=== PATIENT | male | born 1950 | race Caucasian/White ===

== ENCOUNTER 2017-05-06 16:28 | Emergency (ER) | payer MEDICARE ==
[~2017-05-06] VITALS: Ht 180.3 cm; Wt 97.7 kg
[~2017-05-06 16:28] MED LIST: AMOX-291 PO; CARV3.1212 PO; CLAR500T3 PO; LISI2.5T PO; METR500T8 PO; PANT40TA3 PO; SIMV20TA PO
[2017-05-06] MEDS ORDERED: SODIUM CHLORIDE FLUSH 10ML SYR IVF ONE (17:30)
[2017-05-06] MEDS ORDERED: ONDANSETRON 2MG/ML, 2ML IVPush ONE (17:30)
[2017-05-06] MEDS ORDERED: MORPHINE SULFATE 4 MG/ML, 1ML IVPush PRN (17:30)
[2017-05-06 17:31] LABS: HEMATOCRIT 57.1 % (39.2-51.8); HEMOGLOBIN 18.8 g/dL (13.7-18.0)
[2017-05-06 17:43] LABS: BLOOD UREA NITROGEN 22 mg/dL (7-18)
[2017-05-06 17:55] LABS: DIFF TOTAL CELLS COUNTED 100 CELL DIFF
[2017-05-06 17:56] LABS: VERIFY COUNTS? YES
[2017-05-06 17:57] LABS: LARGE PLATELETS 1+
[2017-05-06] MEDS ORDERED: OMNIPAQUE 350 MG/ML, 100ML BOTTLE ONE (18:36)
[2017-05-06] MEDS ORDERED: CIPROFLOXACIN/PMX 400MG/200ML 200 ML IV ONE (19:00)
[2017-05-06] MEDS ORDERED: METRONIDAZOLE PMX 500MG/100ML 100 ML IV ONE (19:00)
[2017-05-06] MEDS ORDERED: KETOROLAC 60 MG/2 ML IVPush ONE (19:00)
[2017-05-06] MEDS ORDERED: METRONIDAZOLE PMX 500MG/100ML 100 ML ONE (19:03)
[2017-05-06] MEDS ORDERED: KETOROLAC 30 MG/1 ML ONE (19:04)
[2017-05-06] MEDS ORDERED: CIPROFLOXACIN/PMX 400MG/200ML 200 ML ONE (19:04)
[2017-05-06 21:16] VITALS: BP 112/65
== END 2017-05-06 21:18 | disposition home or self-care (01) ==
LOC: ED 20:50
DX: K57.32 Diverticulitis of large intestine without perforation or abscess without bleeding (principal); I10 Essential (primary) hypertension
CPT/HCPCS: 36415; 74177; 80048; 81003; 82040; 85025; 96365; 96366; 96368; 96375; 99285; J0744; J1885; Q9967